=== PATIENT | female | born 1975 | race American Indian/Alaskan Native ===

== ENCOUNTER 2017-05-20 13:17 | Emergency (ER) | payer MEDICAID ==
[2017-05-20 13:23] VITALS: BP 107/75; PULSE 83; RESP 16; TEMP 98; O2SAT 100
--- NOTE | 2017-05-20 14:30 | ED PDOC ---
HPI: Back Time Seen by Provider: 05/20/17 13:58 Chief Complaint (Nursing): Rib Injury History Per: Patient History/Exam Limitations: no limitations Onset/Duration Of Symptoms: Days (x last night) Current Symptoms Are (Timing): Still Present Exacerbating Factor(s): Movement Additional Complaint(s): Ms. Brown is a 42 year old female who presents to the ED complaining of left upper back pain after moving furniture last night. Patient reports pain is worse with movement. Denies chest pain, difficulty breathing, fever, cough, numbness or weakness to upper extremity PMD: [facility] Past Medical History Reviewed: Historical Data, Nursing Documentation, Vital Signs Vital Signs: Last Vital Signs Temp 98 F 05/20/17 13:21 Pulse 83 05/20/17 13:21 Resp 16 05/20/17 13:21 BP 107/75 05/20/17 13:21 Pulse Ox 100 05/20/17 13:21 - Medical History PMH: Anemia Denies: Chronic Kidney Disease - Surgical History Surgical History: (x 3) - Family History Family History: States: Unknown Family Hx - Home Medications Home Medications: Ambulatory Orders Medication Instructions Recorded Docusate Sodium [Colace] 100 mg PO Q8 PRN #30 sgl 08/16/14 Ferrous Sulfate 325 mg PO TID #90 tab 08/16/14 Cyclobenzaprine [Cyclobenzaprine 10 mg PO TID PRN #15 tab 05/20/17 HCl] Meloxicam [Mobic] 15 mg PO DAILY #20 tab 05/20/17 - Allergies Allergies/Adverse Reactions: Allergies Allergy/AdvReac Type Severity Reaction Status Date / Time No Known Allergies Allergy Verified 08/15/14 13:00 Review of Systems ROS Statement: Except As Marked, All Systems Reviewed And Found Negative Constitutional: Negative for: Fever Cardiovascular: Negative for: Chest Pain Respiratory: Negative for: Cough, Other (difficulty breathing) Musculoskeletal: Positive for: Back Pain (left upper) Neurological: Negative for: Weakness (upper extremity), Numbness (upper extremity) Physical Exam - Reviewed Nursing Documentation Reviewed: Yes Vital Signs Reviewed: Yes - Physical Exam Comments: GENERAL APPEARANCE: Patient is awake, alert, oriented x 3, in no acute distress. SKIN: Warm, dry; (-) cyanosis. EYES: (-) conjunctival pallor. ENMT: Mucous membranes moist. NECK: (-) tenderness, (-) stiffness, (-) lymphadenopathy. CHEST AND RESPIRATORY: (-) rales, (-) rhonchi, (-) wheezes; breath sounds equal bilaterally. HEART AND CARDIOVASCULAR: (-) irregularity; (-) murmur, (-) gallop. ABDOMEN AND GI: Soft; (-) tenderness; (-) palpable mass. BACK: (-) paravertebral tenderness, (-) spasm, (-) direct bony tenderness, (-) deformity. EXTREMITIES: (-) deformity. Distal pulses good bilaterally. NEURO AND PSYCH: Mental status as above. Intact sensation bilaterally; normal strength in extension of the knees, plantar and dorsiflexion of the toes. - ECG O2 Sat by Pulse Oximetry: 100 (RA) Pulse Ox Interpretation: Normal Medical Decision Making Medical Decision Making: Impression(s): Back pain, Muscle Stain, Spasm Patient was advised to apply ice to affected area. Advised to follow up with primary care physician in 1-2 days without fail. Advised to take medication as prescribed. Return to the emergency room at any time for any new or worsening symptoms. Patient states she fully agrees with and understands discharge instructions. States that she agrees with the plan and disposition. Verbalized and repeated discharge instructions and plan. I have given the patient opportunity to ask any additional questions. Scribe Attestation: Documented by Darian Vee, acting as a scribe for Elizabeth Garcia PA-C. Provider Scribe Attestation: All medical record entries made by the Scribe were at my direction and personally dictated by me. I have reviewed the chart and agree that the record accurately reflects my personal performance of the history, physical exam, medical decision making, and the department course for this patient. I have also personally directed, reviewed, and agree with the discharge instructions and disposition. Disposition - Clinical Impression Clinical Impression: Back pain - Patient ED Disposition Is Patient to be Admitted: No Counseled Patient/Family Regarding: Diagnosis, Need For Followup, Rx Given - Disposition Referrals: [facility] [Outside] Justin Figueroa MD [Staff Provider] - Disposition: Routine/Home Disposition Time: 14:02 Condition: STABLE Additional Instructions: Thank you for letting us take care of you today. You were treated for back pain. The emergency medical care you received today was directed at your acute symptoms. If you were prescribed any medication, please fill it and take as directed. It may take several days for your symptoms to resolve. Return to the Emergency Department if your symptoms worsen, do not improve, or if you have any other problems. Please contact your doctor in 2 days for re-evaluation and follow up / or call one of the physicians/clinics you have been referred to that are listed on the Patient Visit Information form that is included in your discharge packet. Bring any paperwork you were given at discharge with you along with any medications you are taking to your follow up visit. Our treatment cannot replace ongoing medical care by a primary care provider (PCP) outside of the emergency department. Thank you for allowing the [facility] team to be part of your care today. Prescriptions: Cyclobenzaprine [Cyclobenzaprine HCl] 10 mg PO TID PRN #15 tab PRN Reason: Muscle Spasm Meloxicam [Mobic] 15 mg PO DAILY #20 tab Instructions: Upper Back Pain (DC) Forms: [employer] (Spanish), [facility] ED School/Work Excuse
== END 2017-05-20 14:08 | disposition home or self-care (01) ==
LOC: H.ER 13:17
DX: M54.9 Dorsalgia, unspecified (principal)